=== PATIENT | female | born 1985 | race Caucasian/White ===

== ENCOUNTER 2020-03-28 00:28 | Inpatient (IN) ==
[2020-03-28] MEDS ORDERED: Penicillin G Potassium IV 5,000,000 UNITS in NS 0.9% 100 ml BAG 100 ML IVPB ONE (00:46)
[2020-03-28] MEDS ORDERED: Lactated Ringers 1000 ml BAG 1,000 ML IV ONE (00:46)
[2020-03-28 02:14] LABS: ABS Eosinophils 0.1 10^3/ul (0-0.6); ABS Monocytes 0.8 10^3/ul (0-0.8); ABS Neutrophils 8.5 10^3/ul (1.5-7.7); Eosinophil % 0.7 %; Hematocrit 34 % (35-47); Hemoglobin 11.1 g/dL (12.0-16.0); Lymphocyte % 17.6 %; Mean Corpuscular HGB Conc 33 g/dL (31-36); Mean Corpuscular Hemoglobin 24 pg (27-31); Mean Corpuscular Volume 72 fL (80-97); Mean Platelet Volume 7.8 fL (7.4-10.4); Nucleated Red Blood Cells % 0.1; Platelet Count 280 10^3/uL (150-450); Red Blood Count 4.64 10^6 /uL (3.70-4.87); Red Cell Distribution Width 15 % (10-15); White Blood Count 11.5 10^3/uL (3.5-10.8)
[2020-03-28] MEDS ORDERED: Oxytocin in LR 20 UNITS/1,000 ML BAG IVPB ONE (03:41)
[2020-03-28] MEDS ORDERED: fentaNYL 100 mcg/2 ml 50 MCG/ML VIAL ONE (04:02)
[2020-03-28] MEDS ORDERED: Witch Hazel PAD JAR TOPICAL PRN (04:35)
[2020-03-28] MEDS ORDERED: Dibucaine 1% OINT 28.35 GM TUBE PR PRN (04:35)
[2020-03-28] MEDS ORDERED: fentaNYL 100 mcg/2 ml 50 MCG/ML VIAL IV SLOW PU PRN (04:37)
[2020-03-28] MEDS ORDERED: Lactated Ringers 1000 ml BAG 1,000 ML IV SCH (05:00)
[2020-03-28] MEDS ORDERED: Oxytocin in LR 20 UNITS/1,000 ML BAG IVPB SCH (05:00)
[2020-03-28] MEDS ORDERED: Penicillin G Potassium IV 3,000,000 UNITS in NS 0.9% 100 ml BAG 100 ML IVPB SCH (05:30)
[2020-03-28] MEDS ORDERED: Lidocaine 1% VIAL 10 MG/ML VIAL ONE (06:36)
[2020-03-29 08:06] LABS: ABS Basophils 0.1 10^3/ul (0-0.2); ABS Eosinophils 0.1 10^3/ul (0-0.6); ABS Lymphocytes 2.4 10^3/ul (1.0-4.8); ABS Monocytes 0.6 10^3/ul (0-0.8); ABS Neutrophils 7.8 10^3/ul (1.5-7.7); Hematocrit 27 % (35-47); Lymphocyte % 21.7 %; Mean Corpuscular HGB Conc 34 g/dL (31-36); Mean Corpuscular Hemoglobin 25 pg (27-31); Mean Corpuscular Volume 73 fL (80-97); Mean Platelet Volume 7.7 fL (7.4-10.4); Platelet Count 261 10^3/uL (150-450); Red Blood Count 3.64 10^6 /uL (3.70-4.87); Red Cell Distribution Width 15 % (10-15)
[2020-03-30 07:56] VITALS: BP 91/50
== END 2020-03-30 14:15 | disposition home or self-care (01) ==
LOC: MCHOBOUT 00:28 → MCHOB 00:46
PROVIDERS: ADMIT Midwife; ATTEND Midwife